=== PATIENT | male | born 1970 | race Caucasian/White ===

== ENCOUNTER → 2020-08-09 | Day surgery (SDC) | payer BC | END | disposition home or self-care (01) | LOC: OR 06:32 | DX: D12.5 Benign neoplasm of sigmoid colon (principal); D12.8 Benign neoplasm of rectum; K64.1 Second degree hemorrhoids; K64.4 Residual hemorrhoidal skin tags; E78.5 Hyperlipidemia, unspecified; Z79.899 Other long term (current) drug therapy | CPT/HCPCS: J2001; J2704; J7120 ==

== ENCOUNTER 2020-09-12 22:23 | Emergency (ER) | payer BC | END 2020-09-13 00:37 | disposition home or self-care (01) | LOC: ER1 22:23 | DX: S05.92XA Unspecified injury of left eye and orbit, initial encounter (principal); H43.392 Other vitreous opacities, left eye; W22.8XXA Striking against or struck by other objects, initial encounter; Y93.67 Activity, basketball | CPT/HCPCS: 99283 ==